=== PATIENT | male | born 1950 | race Caucasian/White ===

== ENCOUNTER 2018-08-30 13:29 | Emergency (ER) | payer MEDICARE, OTHER ==
[~2018-08-30] VITALS: Ht 180.3 cm; Wt 99.8 kg
--- NOTE | 2018-08-30 14:09 | ED Cardiac General ---
History of Present Illness General Chief Complaint: Cardiac/General Problems Stated Complaint: LT ARM PAIN; NAUSEA Source: patient, RN notes reviewed Exam Limitations: no limitations History of Present Illness Date Seen by Provider: August 30, 2018 Time Seen by Provider: 14:09 Initial Comments Patient presents c/ c/o LUE pain and nausea since approximately 10:30 this AM. (+) PMH of [place] and CVA and just wants to make sure his symptoms are coming from h is heart. His left side was affected by his CVA. Timing/Duration: 4-6 hours, constant Severity: moderate (8/10) Location: other (LUE) Activities at Onset: none Prior CP/Workup: cardiac cath, heart attack Modifying Factors: improves with other (none) NTG SL SCANNING SUPERVISOR: No ASA po SCANNING SUPERVISOR: No Associated Systoms: Denies Symptoms (x/ for some nausea) Allergies and Home Medications Allergies Coded Allergies: No Known Drug Allergies (Unverified , 08/30/18) Home Medications Meloxicam 7.5 Mg Tablet, 7.5 MG PO Q12H PRN for left arm pain Prescribed by: HANK HAYNES on 08/30/18 1506 Patient Home Medication List Home Medication List Reviewed: Yes Review of Systems Review of Systems Constitutional: see HPI Gastrointestinal: See HPI, Nausea Musculoskeletal: see HPI, other (LUE pain) All Other Systems Reviewed Negative Unless Noted: Yes (Negative excepted noted.) Past Kfenujw-Drxgrw-Rryuxy Hx Patient Social History Alcohol Use: Denies Use Recreational Drug Use: No Smoking Status: Never a Smoker 2nd Hand Smoke Exposure: No Recent Hopitalizations: No Physical Abuse: No Sexual Abuse: No Mistreated: No Seasonal Allergies Seasonal Allergies: No Past Medical History Surgeries: Yes Coronary Stent Respiratory: No Cardiac: Yes Heart Attack Stroke Genitourinary: No Gastrointestinal: No Musculoskeletal: No Endocrine: No HEENT: No Cancer: No Psychosocial: No Integumentary: No Blood Disorders: No Physical Exam Vital Signs Vital Signs - First Documented 08/30/18 13:55 Temp 98.6 Pulse 68 Resp 16 B/P (MAP) 138/82 (100) Pulse Ox 97 O2 Delivery Room Air Capillary Refill : Height, Weight, BMI Height: '" Weight: lbs. oz. kg; BMI Method: General Appearance: No Apparent Distress, WD/WN Respiratory: No Respiratory Distress Cardiovascular: Regular Rate, Rhythm Rectal: Deferred Extremity: Other (tender over both his medial and lateral epicondyles (medial > lateral)) Neurologic/Psychiatric: Alert, Oriented x3, Normal Mood/Affect Skin: Warm/Dry; No Rash Progress/Results/Core Measures Results/Orders Lab Results Laboratory Tests Test 08/30/18 14:02 Range/Units White Blood Count 7.2 4.3-11.0 10^3/uL Red Blood Count 4.89 4.35-5.85 10^6/uL Hemoglobin 15.7 13.3-17.7 G/DL Hematocrit 45 40-54 % Mean Corpuscular Volume 92 80-99 FL Mean Corpuscular Hemoglobin 32 25-34 PG Mean Corpuscular Hemoglobin Concent 35 32-36 G/DL Red Cell Distribution Width 13.4 10.0-14.5 % Platelet Count 236 130-400 10^3/uL Mean Platelet Volume 9.1 7.4-10.4 FL Neutrophils (%) (Auto) 55 42-75 % Lymphocytes (%) (Auto) 32 12-44 % Monocytes (%) (Auto) 11 0-12 % Eosinophils (%) (Auto) 2 0-10 % Basophils (%) (Auto) 1 0-10 % Neutrophils # (Auto) 4.0 1.8-7.8 X 10^3 Lymphocytes # (Auto) 2.3 1.0-4.0 X 10^3 Monocytes # (Auto) 0.8 0.0-1.0 X 10^3 Eosinophils # (Auto) 0.1 0.0-0.3 10^3/uL Basophils # (Auto) 0.0 0.0-0.1 10^3/uL Sodium Level 138 135-145 MMOL/L Potassium Level 4.2 3.6-5.0 MMOL/L Chloride Level 100 98-107 MMOL/L Carbon Dioxide Level 26 21-32 MMOL/L Anion Gap 12 5-14 MMOL/L Blood Urea Nitrogen 15 7-18 MG/DL Creatinine 1.16 0.60-1.30 MG/DL Estimat Glomerular Filtration Rate > 60 BUN/Creatinine Ratio 13 Glucose Level 125 H 70-105 MG/DL Calcium Level 8.9 8.5-10.1 MG/DL Corrected Calcium 8.5 8.5-10.1 MG/DL Magnesium Level 1.9 1.8-2.4 MG/DL Total Bilirubin 0.5 0.1-1.0 MG/DL Aspartate Amino Transf (AST/SGOT) 33 5-34 U/L Alanine Aminotransferase (ALT/SGPT) 29 0-55 U/L Alkaline Phosphatase 77 40-136 U/L Troponin T 6 <=15 NG/L Pro-B-Type Natriuretic Peptide 223.6 H <75.0 PG/ML Total Protein 7.9 6.4-8.2 GM/DL Albumin 4.5 3.2-4.5 GM/DL Lipase 37 8-78 U/L My Orders Orders - HANK HAYNES DO Chest 1 View Ap/Pa Only (08/30/18 14:06) Ekg Tracing (08/30/18 14:06) Monitor-Rhythm Ecg Trace Only (08/30/18 14:06) Cbc With Automated Diff (08/30/18 14:06) Comprehensive Metabolic Panel (08/30/18 14:06) Lipase (08/30/18 14:06) Magnesium (08/30/18 14:06) Troponin T (08/30/18 14:06) Probnp Fs (08/30/18 14:06) Dexamethasone Injection (Decadron Inject (08/30/18 15:00) Ketorolac Injection (Toradol Injection) (08/30/18 15:00) Vital Signs/I&O 08/30/18 13:55 Temp 98.6 Pulse 68 Resp 16 B/P (MAP) 138/82 (100) Pulse Ox 97 O2 Delivery Room Air Progress Progress Note : Progress Note LUE discomfort improved on its' own while here in the ED. Did hold his grandchild in his left arm the other day. ? cause. Initial ECG Rhythm: Normal Sinus Initial ECG Impression: Nonspecific Changes Initial ECG Comparisson: No Previous ECG Available Diagnostic Imaging Diagonstic Imaging: Xray Plain Films/CT/US/NM/MRI: chest (nothing acute) Departure Impression Primary Impression: Pain of left upper extremity Disposition: 01 HOME, SELF-CARE Condition: Stable Departure-Patient Inst. Decision time for Depature: 15:03 Referrals: JOHANN PAK (PCP) Primary Care Physician Patient Instructions: Elbow Tendinopathy (Tennis and Golf Elbow) Scripts Meloxicam (Mobic) 7.5 Mg Tablet 7.5 MG PO Q12H PRN for left arm pain, #30 TAB 0 Refills Prov: HANK HAYNES DO 08/30/18 HANK HAYNES DO August 30, 2018 14:09
[2018-08-30 14:15] VITALS: BP 127/85
[2018-08-30 14:15] LABS: HEMATOCRIT 45 % (40-54); HEMOGLOBIN 15.7 G/DL (13.3-17.7); MEAN CORPUSCULAR HEMOGLOBIN 32 PG (25-34); MEAN CORPUSCULAR HGB CONC 35 G/DL (32-36); MEAN CORPUSCULAR VOLUME 92 FL (80-99); MEAN PLATELET VOLUME 9.1 FL (7.4-10.4); PLATELET COUNT 236 10^3/uL (130-400); RED CELL DISTRIBUTION WIDTH 13.4 % (10.0-14.5); WHITE BLOOD COUNT 7.2 10^3/uL (4.3-11.0)
[2018-08-30 14:16] LABS: BASOPHILS % (AUTO) 1 % (0-10); EOSINOPHILS # (AUTO) 0.1 10^3/uL (0.0-0.3); EOSINOPHILS % (AUTO) 2 % (0-10); LYMPHOCYTES # (AUTO) 2.3 X 10^3 (1.0-4.0); LYMPHOCYTES % (AUTO) 32 % (12-44); MONOCYTES # (AUTO) 0.8 X 10^3 (0.0-1.0); MONOCYTES % (AUTO) 11 % (0-12); NEUTROPHILS % (AUTO) 55 % (42-75)
--- NOTE | 2018-08-30 14:31 | Diagnostic Imaging Report ---
Indication: Chest pain extending into left arm. Time of exam: 2:01 PM No prior studies available for comparison. The heart size is stable. The lungs are clear. No infiltrates are seen. The pulmonary vascularity is normal. No effusion or pneumothorax is identified. Impression: No acute cardiopulmonary process is detected. Dictated by: Dictated on workstation # [id number]
[2018-08-30 14:38] LABS: ALANINE AMINOTRANSFERASE 29 U/L (0-55); ALKALINE PHOSPHATASE 77 U/L (40-136); BILIRUBIN,TOTAL 0.5 MG/DL (0.1-1.0); BUN/CREATININE RATIO 13; CALCIUM 8.9 MG/DL (8.5-10.1); CARBON DIOXIDE 26 MMOL/L (21-32); CHLORIDE 100 MMOL/L (98-107); CREATININE SERUM 1.16 MG/DL (0.60-1.30); GFR ESTIMATED > 60; GLUCOSE 125 MG/DL (70-105); MAGNESIUM 1.9 MG/DL (1.8-2.4); POTASSIUM 4.2 MMOL/L (3.6-5.0); SODIUM 138 MMOL/L (135-145); TOTAL PROTEIN 7.9 GM/DL (6.4-8.2)
[2018-08-30 14:39] LABS: ALBUMIN 4.5 GM/DL (3.2-4.5); LIPASE 37 U/L (8-78)
[2018-08-30] MEDS ORDERED: DEXAMETHASONE 4 MG/ML SDV (DECADRON) IV ONE (15:00)
[2018-08-30] MEDS ORDERED: KETOROLAC 30 MG/ML VIAL IVP ONE (15:00)
[2018-08-30] MEDS ORDERED: MELO-170 PO (15:06)
[2018-08-30 15:15] VITALS: BP 148/91
== END 2018-08-30 15:20 | disposition home or self-care (01) ==
LOC: ER FS 13:32
DX: M79.602 Pain in left arm (principal); I25.2 Old myocardial infarction; Z86.73 Personal history of transient ischemic attack (TIA), and cerebral infarction without residual deficits; Z95.5 Presence of coronary angioplasty implant and graft
CPT/HCPCS: 36415; 71045; 80053; 83690; 83735; 83880; 84484; 85025; 93005

== ENCOUNTER → 2019-06-13 | Outpatient (CLI) | payer MEDICARE, OTHER ==
[~2019-06-13] MED LIST: MELO-170 PO
--- NOTE | 2019-06-13 16:10 | Diagnostic Imaging Report ---
INDICATION: Left elbow pain. TECHNIQUE: AP, oblique, and lateral views of the left elbow were obtained. FINDINGS: No fracture or acute bony abnormality is seen. There is no joint effusion. There is joint space narrowing with osteophyte formation, compatible with moderate degenerative change. IMPRESSION: Degenerative findings in the left elbow with no acute fracture or overt joint effusion. Dictated by: Dictated on workstation # [id number]
== END ==
LOC: RAD FS 14:03
PROVIDERS: ATTEND Nurse Practitioner
DX: M19.022 Primary osteoarthritis, left elbow (principal)
CPT/HCPCS: 73080

== ENCOUNTER → 2021-12-17 | Outpatient (CLI) | payer MEDICARE, OTHER ==
[~2021-12-17] MED LIST changes: +GADOTERATE 0.5 MMOL/ML (CLARISCAN) 20 ML VIAL IV ONE
--- NOTE | 2021-12-17 13:44 | Diagnostic Imaging Report ---
PROCEDURE: MR imaging of the brain and internal auditory canal with and without contrast. TECHNIQUE: Multiplanar, multisequence MR imaging of the brain was performed with and without contrast. Additional dedicated MRI sequence of the internal auditory canals was obtained. Date: December 17, 2021. Indication: 71-year-old male, hearing loss. Comparison: None. Findings: There is no diffusion restriction. There is no abnormal intracranial susceptibility. There is a large area of encephalomalacia in the right middle cerebral artery distribution with adjacent T2 and FLAIR hyperintense signal without enhancement likely reflecting gliosis. The ventricles and additional CSF spaces are otherwise normal in size and configuration for patient age. There is no abnormal extra-axial fluid collection. There is no evidence to suggest acute intracranial hemorrhage. There is no identified abnormal intracranial enhancement. The 7th and 8th cranial nerves are unremarkable in appearance. The visualized portions of the 5th cranial nerves are unremarkable in appearance. There is no identified vascular loop entering either internal auditory canal. Dedicated small inoaf-cg-ijay postcontrast images and small engdl-wk-qhqi noncontrast T1 weighted sequences of the internal auditory canals were not obtained or provided. There is some larger ukpxp-ar-swep sequences, there is no identified abnormal signal or enhancement within either internal auditory canal. Impression: 1. No identified abnormality of either internal auditory canal. 2. Large area of encephalomalacia in the right middle cerebral artery distribution. 3. No identified acute intracranial abnormality. Dictated by: Dictated on workstation # [id number]
== END ==
LOC: RAD 11:39
PROVIDERS: ATTEND Otolaryngology Otolaryngology/Facial Plastic Surgery
DX: G93.89 Other specified disorders of brain (principal); H91.8X2 Other specified hearing loss, left ear
CPT/HCPCS: 70553